=== PATIENT | male | born 1970 | race Caucasian/White ===

== ENCOUNTER 2016-10-10 21:56 | Emergency (ER) | payer MEDICAID ==
[~2016-10-10 21:56] MED LIST: ACT30 PO; ASPIR 8181 MG PO; BACLOFEN10 MG PO; BENAZEPRIL HCL-1 TA1 PO; GABAPENTIN300 M4 PO; GARLIC OIL1000 MG PO; GLIPIZIDE10 M2 PO; JANUMET 50-1,01 EACH PO; LEADER VITAMI2000 IU PO; LIPITOR40 MG PO; MOBIC15 MG PO; NOR5 PO; RESTORIL15 MG PO
[2016-10-11 01:15] VITALS: BP 145/98
== END 2016-10-11 01:12 | disposition left against medical advice (07) ==
LOC: ED 21:56
DX: L03.116 Cellulitis of left lower limb (principal); E11.9 Type 2 diabetes mellitus without complications; I10 Essential (primary) hypertension
CPT/HCPCS: 82962; J0696

== ENCOUNTER 2017-12-25 22:47 | Emergency (ER) | payer OTHER, MEDICAID ==
[~2017-12-25] VITALS: Ht 175.3 cm; Wt 169.2 kg
[2017-12-25 23:00] VITALS: Ht 175.3 cm; Wt 169.2 kg
[2017-12-26 00:58] VITALS: BP 148/80
== END 2017-12-26 00:55 | disposition home or self-care (01) ==
LOC: ED 22:47
DX: S39.011A Strain of muscle, fascia and tendon of abdomen, initial encounter (principal); I10 Essential (primary) hypertension; E11.9 Type 2 diabetes mellitus without complications; X58.XXXA Exposure to other specified factors, initial encounter; Y93.89 Activity, other specified; Y92.003 Bedroom of unspecified non-institutional (private) residence as the place of occurrence of the external cause; Y99.8 Other external cause status
CPT/HCPCS: Q0092